=== PATIENT | male | born 1995 | race Caucasian/White ===

== ENCOUNTER 2021-02-16 08:37 | Emergency (ER) | payer OTHER ==
[~2021-02-16] VITALS: Ht 180.3 cm; Wt 79.4 kg
--- NOTE | 2021-02-16 09:00 | NUR ---
rojelio for medical clearance, in custody. here for seizure like activity. On room air, breathing evenly and unlabored. Connected to the monitor and pulse ox. Kept comfortable, will continue to monitor accordingly.
[2021-02-16] MEDS ORDERED: LEVE500T9 PO (10:01)
[2021-02-16 10:44] VITALS: BP 128/77
--- NOTE | 2021-02-16 10:45 | NUR ---
patient left accompanied by [employer] in no distress.
== END 2021-02-16 10:45 ==
LOC: ER 08:42
DX: R56.9 Unspecified convulsions (principal); R51.9 Headache, unspecified; F10.10 Alcohol abuse, uncomplicated; Y90.9 Presence of alcohol in blood, level not specified; Z79.899 Other long term (current) drug therapy; Z02.89 Encounter for other administrative examinations
CPT/HCPCS: 70450-TC; 82962-TC

== ENCOUNTER → 2021-08-22 | Emergency (ER) | payer OTHER ==
[~2021-08-22] VITALS: Ht 177.8 cm; Wt 72.6 kg
[~2021-08-22] MED LIST: IV NS 0.9% 500 ML BAG IV ONE; LEVE500T9 PO; MORPHINE SULFATE INJ 2 MG/ML DISP.SYRIN IV ONE; MORPHINE SULFATE INJ 4 MG/ML DISP.SYRIN ONE; ONDANSETRON HCL/PF 4 MG/2 ML VIAL IVP ONE; ONDANSETRON HCL/PF 4 MG/2 ML VIAL ONE; TDAP [DIPH/PERTUSSIS/TET] 0.5 ML VIAL IM ONE
--- NOTE | 2021-08-22 01:04 | NUR ---
TO ER BED 9. BIBSELF C/O L BACK PAIN, NECK PAIN, AND SHOULDER PAIN. CUTS NOTED ON BACK AND REDNESS NOTED ON FOREHEAD. PT DID NOT TAKE ANYTHING FOR PAIN. DENIES ANY CHEST PAIN. NOT IN RESPIRATORY DISTRESS. CONNECTED TO MONITOR
--- NOTE | 2021-08-22 02:15 | NUR ---
IV LINE ESTABLISHED, [id number]
--- NOTE | 2021-08-22 04:15 | NUR ---
Patient discharged to home in stable condition. Written and verbal after care instructions given. Patient verbalizes understanding of instruction.
[2021-08-22 04:16] VITALS: BP 130/80
== END | disposition home or self-care (01) ==
LOC: ER 00:50
DX: S06.0X0A Concussion without loss of consciousness, initial encounter (principal); M54.2 Cervicalgia; Z86.69 Personal history of other diseases of the nervous system and sense organs; Z79.899 Other long term (current) drug therapy; V43.62XA Car passenger injured in collision with other type car in traffic accident, initial encounter; Y93.89 Activity, other specified; Y92.89 Other specified places as the place of occurrence of the external cause; Y99.8 Other external cause status
CPT/HCPCS: 70450; 71045; 72125; 90471; 90715; 93005; 96361; 96374; 96375; 99284; J2270; J2405; J7040